=== PATIENT | male | born 1970 | race Caucasian/White ===

== ENCOUNTER 2022-04-23 16:30 | Emergency (ER) | payer OTHER, SELFPAY ==
[2022-04-23 17:06] VITALS: BP 137/77; PULSE 98; RESP 18; TEMP 38.6; O2SAT 95
--- NOTE | 2022-04-23 18:59 | ED.GENADULT ---
HPI - General Adult General Chief complaint: Upper Respiratory Infection Stated complaint: Shortness of Breath,Cough,Congestion History of Present Illness HPI narrative: 52 y/o male. PMHx Non-contributory. Presents to [facility] today with acute complaints of increased nasal congestion, cough, 'yellow' phlegm production, as well as 'cold sores' to his lips. Manifestations present > the past 1wk. No MITCHELL, dizziness, focal weakness. No fevers, neck pain. No chest pain, palpitations, hemoptysis. Mild and intermittent dyspnea. Denies GI upset, N/V/D. Related Data Allergies Allergy/AdvReac Type Severity Reaction Status Date / Time No Known Allergies Allergy Mild Verified 04/23/22 17:21 Review of Systems Review of Systems: All systems reviewed & are unremarkable except as noted in HPI and below Constitutional: Cold sores. HENT: Nasal congestion. RESP: Cough, yellow phlegm. PMFSH Past Medical History Medical History Chicken pox Family History Family History Father Family history of elevated blood lipids Family history of cardiovascular disease Social History Social History Smoking status: Never smoker Alcohol intake: current Exam Narrative: GENERAL: Well-appearing, well-nourished, and in no acute distress. HEAD: Normocephalic, atraumatic. EYES: PERRLA, conjunctivae clear, and EOMI. ENT: Mucous membranes moist. With 2 isolated cold sores located to lower and outer lip. No discharge, no necrotic changes. Positive PND. Pharyngeal erythema, without swelling or exudative changes, Uvula midline. Palate soft. NECK: Supple. No lymphadenopathy CHEST: Upper airway Rhonchi, cleared w/cough. No respiratory distress. HEART: Regular rate and rhythm. SKIN: Warm, dry, intact NEURO:? Alert and oriented x3. PSYCH: Normal mood and affect Course Course Level of Care: Express Care Visit Vital Signs Vital signs: Vital Signs Temperature 38.6 C H 04/23/22 17:06 Pulse Rate 98 04/23/22 17:06 Respiratory Rate 18 04/23/22 17:06 Blood Pressure 137/77 04/23/22 17:06 Pulse Oximetry 95 04/23/22 17:06 Oxygen Delivery Room Air 04/23/22 17:06 Temperature 38.6 C H 04/23/22 17:06 Pulse Rate 98 04/23/22 17:06 Respiratory Rate 18 04/23/22 17:06 Blood Pressure 137/77 04/23/22 17:06 Pulse Oximetry 95 04/23/22 17:06 Oxygen Delivery Room Air 04/23/22 17:06 Medical Decision Making Differential Diagnosis Differential Diagnosis: Differential Diagnosis: Consideration of the following conditions may be warranted for the presenting problem, they are not final diagnoses: upper respiratory infection, otitis media, sinusitis, RSV viral infection, bronchitis, pharyngitis, PNA, Streptococcal sore throat, COVID-19, and other. Vital Signs Vital Signs: Vital Signs Temperature 38.6 C H 04/23/22 17:06 Pulse Rate 98 04/23/22 17:06 Respiratory Rate 18 04/23/22 17:06 Blood Pressure 137/77 04/23/22 17:06 Pulse Oximetry 95 04/23/22 17:06 Oxygen Delivery Room Air 04/23/22 17:06 Temperature 38.6 C H 04/23/22 17:06 Pulse Rate 98 04/23/22 17:06 Respiratory Rate 18 04/23/22 17:06 Blood Pressure 137/77 04/23/22 17:06 Pulse Oximetry 95 04/23/22 17:06 Oxygen Delivery Room Air 04/23/22 17:06 Discharge Plan Discharge Clinical Impression: Upper respiratory infection, Sinusitis Patient Disposition: Home, Self-Care Condition: Stable Instructions: Antibiotic Form, Upper Respiratory Infection (DC) Prescriptions: New azithromycin 250 mg tablet See Rx Instructions .ROUTE .COMPLEX Qty: 6 0RF Rx Instructions: For 250 mg dose pack: take 500 mg today (day 1), then 250 mg for 4 days (days 2-5) methylprednisolone [Medrol (Luis Fernando)] 4 mg tablets,dose pack See Rx Instr
== END 2022-04-23 17:40 | disposition home or self-care (01) ==
PROVIDERS: Emergency Provider Nurse Practitioner Adult Health
DX: J06.9 Acute upper respiratory infection, unspecified (principal); J32.9 Chronic sinusitis, unspecified
CPT/HCPCS: 99213; G0463

== ENCOUNTER 2024-06-25 06:11 | Emergency (ER) | payer OTHER, SELFPAY ==
--- NOTE | ~2024-06-25 | CT_ITS ---
Non-contrast Head CT History: Syncope, seizure Technique: Axial non-contrast imaging of the brain was performed. Dose reduction technique was used on this scan by utilizing automated exposure control and iterative reconstruction technique. The dose -length product (DLP) was 681.00 mGy-cm. Findings: There is no evidence of intracranial hemorrhage, mass lesion, or acute infarct. Brain par enchyma appears normal. The ventricles and subarachnoid spaces are normal in size. The calvarium ap pears normal. The visualized paranasal sinuses and mastoid air cells are clear. Impression: No significant abnormality seen. Reviewed, dictated and finalized at location . K MECHANIC APPRENTICE Impression: No significant abnormality seen.
[2024-06-25 06:12] VITALS: BP 114/72; PULSE 41; RESP 17; O2SAT 95
--- NOTE | 2024-06-25 06:14 | ECG_ITS ---
Test Date: 2024-06-25 06:21:58 Measurements Intervals [place] Rate: 49 P: -9 ID: [id number] QRS: 68 QRSD: 87 T: 52 QT: 483 QTc: 438 Interpretive Statements SINUS BRADYCARDIA WITH SINUS ARRHYTHMIA DELAYED PRECORDIAL R/S TRANSITION BASELINE ARTIFACT- I, II, AVR, AVF BORDERLINE ECG No previous ECG available for comparison Electronically Signed On 06-25-2024 07:38:29 [employer] by Remi Baltazar D.O.
--- NOTE | 2024-06-25 06:30 | ED_ITS ---
HPI - General Adult General Chief complaint: Unspecified <Des Zacarias MD - Last Filed: 06/25/24 19:13> Stated complaint: SYNCOPE VS SEIZURE <Des Zacarias MD - Last Filed: 06/25/24 19:13> Time Seen by Provider: 06/25/24 06:15 <Des Zacarias MD - Last Filed: 06/25/24 19:13> History of Present Illness HPI narrative: 54-year-old otherwise healthy male presenting to the emergency department for evaluation of a potential syncopal versus seizure episode. Patient has otherwise been in his normal state of health but did recently have a upper respiratory infection with influenza. He states that while getting up and using the shower today he felt like he was getting lightheaded and had a syncopal event with loss of consciousness for about 20 seconds, found him and had shaking activity in his extremities which she was concerned about having a seizure. This occurred a 2nd time before patient woke up acting appropriately and had normal mental status. He does not recall this shaking or seizure activity but did remember going to the bathroom to try and shower. Patient has a history of chronic bradycardia with heart rates in the low 40s but has never seen a wallpaper consultant for this. Does not take any cardiac medications, does not take any prescription medications in fact. EMS arrived and patient was awake alert oriented at baseline, had a normal blood sugar, no evidence of trauma. Patient self is asymptomatic at this time and denies any headache, vision changes, nausea, vomiting, abdominal pain, back pain, fever, chills. No history of seizure disorder. No history of cardiac events in the past. States he has had episodes of syncope in the remote past that were triggered by other causes such as vertigo. <Des Zacarias MD - Last Filed: 06/25/24 19:13> Related Data Home medications: Home Medications ?Medication ?Instructions ?Recorded ?Confirmed ?Last Taken ?Type ascorbic acid (vitamin C) PO 11/13/23 11/13/23 Unknown History <Des Zacarias MD - Last Filed: 06/25/24 19:13> Allergies/adverse reactions: Allergies Allergy/AdvReac Type Severity Reaction Status Date / Time No Known Allergies Allergy Mild Verified 06/25/24 06:24 <Des Zacarias MD - Last Filed: 06/25/24 19:13> Review of Systems 2 Review of Systems: As reviewed above in HPI <Des Zacarias MD - Last Filed: 06/25/24 19:13> PMFSH Past Medical History Medical History: Medical History Snoring Cerumen impaction Encounter to establish care Hx of fracture of skull Chicken pox <Des Zacarias MD - Last Filed: 06/25/24 19:13> Family History Family History: Family History Father Family history of elevated blood lipids Family history of cardiovascular disease Mother Bladder cancer <Des Zacarias MD - Last Filed: 06/25/24 19:13> Social History Social History: Social History Smoking status: Never smoker Alcohol intake: current <Des Zacarias MD - Last Filed: 06/25/24 19:13> Exam 2 Narrative: GENERAL: [Well-appearing, well-nourished, and in no acute distress.] HEAD: [Normocephalic, atraumatic.] EYES: [PERRLA and EOMI.] ENT: Nares clear, no rhinorrhea or epistaxis. Mucous membranes moist. NECK: Supple. CHEST: [Clear to auscultation. No respiratory distress.] HEART: Bradycardic rate but regular rhythm. No murmur heard. [Normal peripheral pulses.] ABDOMEN: [Soft, nondistended], [nontender], [No rigidity or guarding] EXTREMITIES: Normal range of motion. [No edema.] SKIN: Warm, dry, no rash. NEURO: [No focal deficits]. Alert and oriented [x3.] PSYCH: [Normal mood and affect.] <Des Zacarias MD - Last Filed: 06/25/24 19:13> Course Course Emergency Course: Patient signed out to me pending remainder workup. My re-evaluation, patient is no distress. He does state that when knee pain to this time, he had stood up suddenly, started feeling like he was going to pass out the patient rate, he tried to back down was only able to get foot before he fell, his saw some seizure-like activity that did not last long and patient tried to get back up without any postictal phase. He denies any chest pain or shortness of breath. This does seem consistent with syncope, patient states he would rather go home at this time if possible and I feel this is reasonable as he is currently asymptomatic, Holter monitor placed and f/u to cardiology provided. Pt and agreeable to plan. Very well-appearing time of discharge, strict return precautions discussed <Shalini Hurley MD - Last Filed: 06/25/24 14:10> Vital Signs Vital signs: Vital Signs Pulse Rate 41 L 06/25/24 06:12 Respiratory Rate 17 06/25/24 06:12 Blood Pressure 114/72 06/25/24 06:12 Pulse Oximetry 95 06/25/24 06:12 Oxygen Delivery Room Air 06/25/24 06:12 Pulse Rate 44 L 06/25/24 09:24 Respiratory Rate 18 06/25/24 09:24 Blood Pressure 117/80 06/25/24 09:24 Pulse Oximetry 97 06/25/24 09:24 Oxygen Delivery Room Air 06/25/24 06:12 <Des Zacarias MD - Last Filed: 06/25/24 19:13> Vital Signs Pulse Rate 41 L 06/25/24 06:12 Respiratory Rate 17 06/25/24 06:12 Blood Pressure 114/72 06/25/24 06:12 Pulse Oximetry 95 06/25/24 06:12 Oxygen Delivery Room Air 06/25/24 06:12 Pulse Rate 44 L 06/25/24 09:24 Respiratory Rate 18 06/25/24 09:24 Blood Pressure 117/80 06/25/24 09:24 Pulse Oximetry 97 06/25/24 09:24 Oxygen Delivery Room Air 06/25/24 06:12 <Shalini Hurley MD - Last Filed: 06/25/24 14:10> Medical Decision Making MDM Narrative Medical decision making narrative: 54-year-old male presenting to the ER for evaluation of a potential syncopal event versus a seizure event. No history of seizure disorder, no history of epilepsy. Does not take any cardiac medications. Was otherwise in his normal state of health but did recently get over the flu several days ago. Patient had an episode of shaking for approximately 20 seconds according to the associated with loss of consciousness but patient states that he does not remember this. He states he went up and use the restroom and tried to get into the shower and then fainted. Woke up acting appropriately without any postictal phase. No evidence of trauma. He is chronically bradycardic but no other vital concerns on his vitals. Patient is currently asymptomatic and otherwise feels well. Broad workup was ordered including electrolyte panel, CBC, troponin, head CT, chest x-ray and EKG. Suspicion presently for potential syncopal event either related to his heart rate versus orthostasis or dehydration given that he recently got over the influenza virus. Suspicion for new onset epilepsy is very low however will evaluate with labs and imaging. Patient is placed on allied health teacher and pulse oximetry and observed here in the emergency department. Patient's workup is pending. [facility] physician Dr. Hurley at 7:00 a.m. <Des Zacarias MD - Last Filed: 06/25/24 19:13> Medical Records Medical records reviewed: Yes I reviewed the external patient's medical records. <Des Zacarias MD - Last Filed: 06/25/24 19:13> Vital Signs Vital Signs: Vital Signs Pulse Rate 41 L 06/25/24 06:12 Respiratory Rate 17 06/25/24 06:12 Blood Pressure 114/72 06/25/24 06:12 Pulse Oximetry 95 06/25/24 06:12 Oxygen Delivery Room Air 06/25/24 06:12 Pulse Rate 44 L 06/25/24 09:24 Respiratory Rate 18 06/25/24 09:24 Blood Pressure 117/80 06/25/24 09:24 Pulse Oximetry 97 06/25/24 09:24 Oxygen Delivery Room Air 06/25/24 06:12 <Des Zacarias MD - Last Filed: 06/25/24 19:13> Vital Signs Pulse Rate 41 L 06/25/24 06:12 Respiratory Rate 17 06/25/24 06:12 Blood Pressure 114/72 06/25/24 06:12 Pulse Oximetry 95 06/25/24 06:12 Oxygen Delivery Room Air 06/25/24 06:12 Pulse Rate 44 L 06/25/24 09:24 Respiratory Rate 18 06/25/24 09:24 Blood Pressure 117/80 06/25/24 09:24 Pulse Oximetry 97 06/25/24 09:24 Oxygen Delivery Room Air 06/25/24 06:12 <Shalini Hurley MD - Last Filed: 06/25/24 14:10> Lab Data Result diagrams: 06/25/24 06:33 06/25/24 06:33 <Des Zacarias MD - Last Filed: 06/25/24 19:13> Labs: Lab Results 06/25/24 06/25/24 06/25/24 Range/Units 06:33 06:59 07:08 WBC 3.5 L (4.5-10.0) K/mm3 RBC 4.10 L (4.6-6.20) M/mm3 Hgb 12.9 L (14.0-18.0) g/dL Hct 39.7 L (42.0-52.0) % MCV 96.8 (80-100) fl MCH 31.5 (26-34) pg MCHC 32.5 (32-36) g/dl RDW 12.9 (11.5-14.5) % Plt Count 181 (150-375) k/mm3 MPV 10.1 (7.4-10.4) fl Immature Gran % (Auto) 0.3 (0-0.5) % Neut % (Auto) 38.5 L (45.5-73.1) % Lymph % (Auto) 38.6 (18.3-44.2) % [place] % (Auto) 19.1 H (2.6-8.5) % Eos % (Auto) 2.6 (0-4.4) % Baso % (Auto) 0.9 (0.2-1.2) % Lymph # (Auto) 1.35 (0.9-3.2) K/mm3 [place] # (Auto) 0.7 H (0.1-0.6) K/mm3 Eos # (Auto) 0.1 (0-0.3) K/mm3 Baso # (Auto) 0.0 (0.0-0.1) K/mm3 Abs Immat Gran (auto) 0.01 (0.00-0.031) K/mm3 Absolute Neuts (auto) 1.4 (1.3-6.7) K/mm3 Absolute Nucleated RBC 0.000 (0.0-0.012) K/mm3 Nucleated RBC % 0.0 (0.0-0.2) % Atypical Lymphocytes Present Platelet Estimate Adequate (Adequate) % Immature Plt Fraction 5.2 (0.9-11.2) % Schistocytes None seen PT 13.4 (11.1-14.7) Seconds INR 1.0 APTT 24.8 (22.3-36.8) Seconds Sodium 138 (137-145) mmol/L Potassium 4.3 (3.4-5.0) mmol/L Chloride 103 (98-107) mmol/L Carbon Dioxide 28 (22-30) mmol/L Anion Gap 7 (4-12) mmol/L BUN 18 (9-20) mg/dL Creatinine 1.27 (0.7-1.3) mg/dL Estim Creat Clear Calc 66 ml/min Estimated GFR 59 (59 - ) Glucose 96 (65-110) mg/dL Lactic Acid 1.1 (0.7-2.0) mmol/L Calcium 8.7 (8.4-10.2) mg/dL Total Bilirubin 0.4 (0.2-1.3) mg/dL AST 28 (17-59) U/L ALT 17 (6-50) U/L Alkaline Phosphatase 49 (38-126) U/L Troponin I < 0.012 (0.000-0.034) ng/mL Total Protein 7.0 (6.3-8.2) g/dL Albumin 3.8 (3.5-5.1) g/dL Urine Color Dark yellow (Yellow) Urine Appearance Clear (Clear) Urine pH 5.5 (5.0-9.0) Ur Specific [place] 1.025 (1.001-1.035) Urine Protein Trace (Negative) mg/dL Urine Glucose (UA) Negative (Negative) mg/dL Urine Ketones Trace H (Negative) mg/dL Ur Blood (Man) Negative (Negative) Urine Nitrate Negative (Negative) Urine Bilirubin Negative (Negative) Urine Urobilinogen 1.0 (<2.0) mg/dL Add Ur Microanalysis Reviewed Leukocyte Esterase Rfl Negative (Negative) EFREN/UL Urine RBC 0-2 (0-2) /hpf Urine WBC 0-5 (0-3) /hpf Ur Squamous Epith Cells Occasional (Few) /hpf Urine Bacteria None seen /hpf Urine Casts 6-10 Hyaline Casts Present (None) /lpf Urine Mucus Present /lpf <Des Zacarias MD - Last Filed: 06/25/24 19:13> Lab Results 06/25/24 06/25/24 06/25/24 Range/Units 06:33 06:59 07:08 WBC 3.5 L (4.5-10.0) K/mm3 RBC 4.10 L (4.6-6.20) M/mm3 Hgb 12.9 L (14.0-18.0) g/dL Hct 39.7 L (42.0-52.0) % MCV 96.8 (80-100) fl MCH 31.5 (26-34) pg MCHC 32.5 (32-36) g/dl RDW 12.9 (11.5-14.5) % Plt Count 181 (150-375) k/mm3 MPV 10.1 (7.4-10.4) fl Immature Gran % (Auto) 0.3 (0-0.5) % Neut % (Auto) 38.5 L (45.5-73.1) % Lymph % (Auto) 38.6 (18.3-44.2) % [place] % (Auto) 19.1 H (2.6-8.5) % Eos % (Auto) 2.6 (0-4.4) % Baso % (Auto) 0.9 (0.2-1.2) % Lymph # (Auto) 1.35 (0.9-3.2) K/mm3 [place] # (Auto) 0.7 H (0.1-0.6) K/mm3 Eos # (Auto) 0.1 (0-0.3) K/mm3 Baso # (Auto) 0.0 (0.0-0.1) K/mm3 Abs Immat Gran (auto) 0.01 (0.00-0.031) K/mm3 Absolute Neuts (auto) 1.4 (1.3-6.7) K/mm3 Absolute Nucleated RBC 0.000 (0.0-0.012) K/mm3 Nucleated RBC % 0.0 (0.0-0.2) % Atypical Lymphocytes Present Platelet Estimate Adequate (Adequate) % Immature Plt Fraction 5.2 (0.9-11.2) % Schistocytes None seen PT 13.4 (11.1-14.7) Seconds INR 1.0 APTT 24.8 (22.3-36.8) Seconds Sodium 138 (137-145) mmol/L Potassium 4.3 (3.4-5.0) mmol/L Chloride 103 (98-107) mmol/L Carbon Dioxide 28 (22-30) mmol/L Anion Gap 7 (4-12) mmol/L BUN 18 (9-20) mg/dL Creatinine 1.27 (0.7-1.3) mg/dL Estim Creat Clear Calc 66 ml/min Estimated GFR 59 (59 - ) Glucose 96 (65-110) mg/dL Lactic Acid 1.1 (0.7-2.0) mmol/L Calcium 8.7 (8.4-10.2) mg/dL Total Bilirubin 0.4 (0.2-1.3) mg/dL AST 28 (17-59) U/L ALT 17 (6-50) U/L Alkaline Phosphatase 49 (38-126) U/L Troponin I < 0.012 (0.000-0.034) ng/mL Total Protein 7.0 (6.3-8.2) g/dL Albumin 3.8 (3.5-5.1) g/dL Urine Color Dark yellow (Yellow) Urine Appearance Clear (Clear) Urine pH 5.5 (5.0-9.0) Ur Specific [place] 1.025 (1.001-1.035) Urine Protein Trace (Negative) mg/dL Urine Glucose (UA) Negative (Negative) mg/dL Urine Ketones Trace H (Negative) mg/dL Ur Blood (Man) Negative (Negative) Urine Nitrate Negative (Negative) Urine Bilirubin Negative (Negative) Urine Urobilinogen 1.0 (<2.0) mg/dL Add Ur Microanalysis Reviewed Leukocyte Esterase Rfl Negative (Negative) EFREN/UL Urine RBC 0-2 (0-2) /hpf Urine WBC 0-5 (0-3) /hpf Ur Squamous Epith Cells Occasional (Few) /hpf Urine Bacteria None seen /hpf Urine Casts 6-10 Hyaline Casts Present (None) /lpf Urine Mucus Present /lpf <Shalini Hurley MD - Last Filed: 06/25/24 14:10> Discharge Plan Discharge Clinical Impression: Syncope, Asymptomatic bradycardia <Des Zacarias MD - Last Filed: 06/25/24 19:13> Patient Disposition: Home, Self-Care <Des Zacarias MD - Last Filed: 06/25/24 19:13> Condition: Stable <Des Zacarias MD - Last Filed: 06/25/24 19:13> Instructions: Syncope (ED) <Des Zacarias MD - Last Filed: 06/25/24 19:13> Additional Instructions: Please make sure that you are keeping adequately hydrated, take your time standing up, and if this happens again, please come back to the emergency room. Please follow up with the wallpaper consultant. <Des Zacarias MD - Last Filed: 06/25/24 19:13> Patient Language: Croatian <Des Zacarias MD - Last Filed: 06/25/24 19:13> Prescriptions: No Action ascorbic acid (vitamin C) PO <Des Zacarias MD - Last Filed: 06/25/24 19:13> Other Ambulatory Orders: CA holter monitor 3-7 day (Routine) Timeframe: 1 Day Location: Determined by Patient Ordered By: Remi Baltazar <Des Zacarias MD - Last Filed: 06/25/24 19:13> Follow-up/Referrals: Remi Baltazar DO [Physician] - 2 Days PHYSICIAN,PATIENT REGISTRATION SPECIALIST [Primary Care Provider] - <Des Zacarias MD - Last Filed: 06/25/24 19:13>
[2024-06-25] MEDS: LACTATED RINGERS 1,000 ML 999 ML IV CONT (06:35)
[2024-06-25 06:47] LABS: Basophils Percent Auto 0.9 % (0.2-1.2); Eosinophils Absolute Auto 0.1 K/mm3 (0-0.3); Eosinophils Percent Auto 2.6 % (0-4.4); Hematocrit 39.7 % (42.0-52.0); Hemoglobin 12.9 g/dL (14.0-18.0); Immature Granulocyte Absolute 0.01 K/mm3 (0.00-0.031); Immature Granulocyte Percent A 0.3 % (0-0.5); Immature Platelet Fraction Pct 5.2 % (0.9-11.2); Lymphocytes Absolute Auto 1.35 K/mm3 (0.9-3.2); Lymphocytes Percent Auto 38.6 % (18.3-44.2); Mean Corpuscular HGB Conc 32.5 g/dl (32-36); Mean Corpuscular Hemoglobin 31.5 pg (26-34); Mean Corpuscular Volume 96.8 fl (80-100); Mean Platelet Volume 10.1 fl (7.4-10.4); Monocytes Absolute Auto 0.7 K/mm3 (0.1-0.6); Monocytes Percent Auto 19.1 % (2.6-8.5); Neutrophils Absolute Auto 1.4 K/mm3 (1.3-6.7); Neutrophils Percent Auto 38.5 % (45.5-73.1); Platelet Count Result 181 k/mm3 (150-375); Red Cell Distribution Width 12.9 % (11.5-14.5); White Blood Count 3.5 K/mm3 (4.5-10.0)
[2024-06-25 06:57] LABS: Alanine Aminotransferase 17 U/L (6-50); Albumin Level 3.8 g/dL (3.5-5.1); Alkaline Phosphatase 49 U/L (38-126); Anion Gap 7 mmol/L (4-12); Aspartate Amino Transferase 28 U/L (17-59); Bilirubin,Total 0.4 mg/dL (0.2-1.3); Blood Urea Nitrogen 18 mg/dL (9-20); Calcium 8.7 mg/dL (8.4-10.2); Carbon Dioxide 28 mmol/L (22-30); Chloride 103 mmol/L (98-107); Estimated CRCL calculation 66 ml/min; Estimated Glomerular Filt Rate 59; Glucose 96 mg/dL (65-110); Potassium 4.3 mmol/L (3.4-5.0); Sodium 138 mmol/L (137-145)
[2024-06-25 06:59] LABS: Prothrombin Time 13.4 Seconds (11.1-14.7)
[2024-06-25 07:00] LABS: Partial Thromboplastin Time 24.8 Seconds (22.3-36.8)
[2024-06-25 07:03] LABS: Atypical Lymphocytes Present; Platelet Estimate Adequate (Adequate); Schistocytes None Seen
[2024-06-25 07:08] LABS: Troponin I < 0.012 ng/mL (0.000-0.034)
[2024-06-25 07:15] LABS: Lactic Acid Reflex 1.1 mmol/L (0.7-2.0)
[2024-06-25 07:24] VITALS: BP 109/72; PULSE 39; RESP 16; O2SAT 100
[2024-06-25 07:37] LABS: Add Urine Microscopic? YES; Appearance Urine Clear (Clear); Bacteria Urine None Seen /hpf; Bilirubin Urine Negative (Negative); Blood Urine Negative (Negative); Color Urine Dark Yellow (Yellow); Glucose Urine UA Negative (Negative); Hyaline Casts Urine Present /lpf; Ketones Urine Trace mg/dL (Negative); Leukocyte Esterase Ur Negative LEU/UL (Negative); Mucus Urine Present /lpf; Need Manual Microscopic Reviewed; Nitrate Urine Negative (Negative); Protein Urine Trace mg/dL (Negative); RBC Urine 0-2 /hpf (0-2); Specific Grav Ur 1.025 (1.001-1.035); Squamous Epithelial Cell Urine Occasional /hpf (Few); WBC Urine 0-5 /hpf (0-3); pH Urine 5.5 (5.0-9.0)
[2024-06-25 09:24] VITALS: BP 117/80; PULSE 44; RESP 18; O2SAT 97
== END 2024-06-25 09:39 | disposition home or self-care (01) ==
PROVIDERS: Student in an Organized Health Care Education/Training Program; Emergency Provider Emergency Medicine
DX: R55 Syncope and collapse (principal); R00.1 Bradycardia, unspecified
CPT/HCPCS: 36415; 70450; 80053; 81001; 83605; 84484; 85025; 85055; 85610; 85730; 93005; 93242; 96360; 99284; J7120

== ENCOUNTER → 2024-06-30 14:47 | Outpatient (CLI) | payer OTHER, SELFPAY ==
--- NOTE | ~2024-06-30 | XR_ITS ---
EXAMINATION: XR chest 2V 07/03/2024 12:29 INDICATION: Cough PROCEDURE: 2 view chest COMPARISON: 08/03/2005 FINDINGS: The lungs are clear. The cardiomediastinal silhouette is within normal limits. There are no pleural effusions. There is no pneumothorax suspected. IMPRESSION: 1: NO ACUTE CARDIOPULMONARY DISEASE. Reviewed, dictated and finalized at location L. ER MILL WORKER
== END ==
LOC: EXPTRAD 14:48
PROVIDERS: PCP Nurse Practitioner Family; Visit Provider Nurse Practitioner Family
DX: R05.9 Cough, unspecified (principal)
CPT/HCPCS: 71046

== ENCOUNTER 2024-07-06 16:04 | Emergency (ER) | payer OTHER, SELFPAY ==
[2024-07-06 16:37] VITALS: BP 141/75; PULSE 85; RESP 18; TEMP 38.4; O2SAT 95
--- NOTE | 2024-07-06 16:59 | ED_ITS ---
HPI - URI/Sore Throat General Chief Complaint: Upper Respiratory Infection Stated Complaint: Upper Respiratory Infection Time Seen by Provider: 07/06/24 16:59 Source: patient, RN notes reviewed and old records reviewed Mode of arrival: ambulatory Limitations: no limitations History of Present Illness HPI Narrative: 54-year-old male presents to the [facility] with intermittent fevers, nonproductive cough. States that started about 2 weeks ago. Was seen in the ER on the 25 of June for syncopal episode. Did follow-up with primary care provider to at ordered a chest x-ray that was done on the which showed no acute findings at this time. Patient reports increasing fatigue, coughing. Denies any chest pain. Patient also reports he has had cold sores he has been taking acyclovir for and they are not clearing up. Onset (ago): week(s) (2) Related Data Home Medications ?Medication ?Instructions ?Recorded ?Confirmed ?Last Taken ?Type multivitamin 1 tablet PO DAILY 07/06/24 07/06/24 Unknown History Allergies Allergy/AdvReac Type Severity Reaction Status Date / Time No Known Allergies Allergy Mild Verified 07/06/24 16:41 Review of Systems Review of Systems: All systems reviewed & are unremarkable except as noted in HPI and below Constitutional: Constitutional: Reports as per HPI, Reports body ache(s), Reports fatigue and Reports fever(s) ENT: Reports as per HPI Cardiovascular: Cardiovascular: Reports no additional cardiovascular complaints, Denies chest pain and Denies dyspnea Respiratory: Respiratory: Reports as per HPI, Denies chest congestion, Reports cough and Denies dyspnea Musculoskeletal: Musculoskeletal: Reports no additional musculoskeletal complaints Integumentary/Breasts: Skin/Breast: Reports system reviewed and no additional complaints, except as docu PMFSH Past Medical History Medical History Cough Snoring Cerumen impaction Encounter to establish care Hx of fracture of skull Chicken pox Family History Family History Father Family history of elevated blood lipids Family history of cardiovascular disease Mother Bladder cancer Social History Social History Smoking status: Never smoker Alcohol intake: current Comments At the time of my signature, I reviewed and agree with the nursing past medical, surgical, social, and family history. There is no relevant family history pertinent to the patient complaint. Exam Const: General: cooperative, healthy appearing, no acute distress, well developed, alert, tired appearing, uncomfortable and well nourished Nutritional Appearance: well nourished Orientation/consciousness: patient oriented x3 Limitations: no limitations HENMT: Head: normal to inspection Ears: hearing grossly normal bilaterally, external ears normal, TM's normal bilaterally, EAC's normal, mastoids normal and no periauricular adenopathy Other: Cold sores bottom lip Eyes: General: appearance normal, both eyes and all related structures Alignment and Position: alignment normal Neck: Neck: normal visual inspection, full ROM, no lymphadenopathy and no meningeal signs Chest: Chest palpation & inspection: normal inspection of the chest Resp: Effort & Inspection: normal respiratory effort and able to speak in complete sentences Auscultation: no crackles, no rales, no rhonchi and wheezes expiratory wheezes and throughout Cardio: Rate: regular rate Skin: General skin exam: normal color and no rashes or lesions noted Neuro: General: patient oriented x3, gait normal, moves all extremities and no meningeal signs Cognition (Neuro): normal cognition Speech: normal speech Gait exam (Neuro): Normal gait present Extrem: General: normal to inspection, full ROM, capillary refill normal and normal gait Psych: Appearance: grossly normal and well kempt Mental Status: mental status grossly normal Speech and movement: Normal speech and movement present and Clear speech present Affect: normal affect Attitude: cooperative Course Course Level of Care: Express Care Visit Vital Signs Vital signs: Vital Signs Temperature 101.1 F H 07/06/24 16:37 Pulse Rate 85 07/06/24 16:37 Respiratory Rate 18 07/06/24 16:37 Blood Pressure 141/75 H 07/06/24 16:37 Pulse Oximetry 95 07/06/24 16:37 Oxygen Delivery Room Air 07/06/24 16:37 Temperature 101.1 F H 07/06/24 16:37 Pulse Rate 85 07/06/24 16:37 Respiratory Rate 18 07/06/24 16:37 Blood Pressure 141/75 H 07/06/24 16:37 Pulse Oximetry 95 07/06/24 16:37 Oxygen Delivery Room Air 07/06/24 16:37 Reviewed MDM - URI/Sore Throat MDM Narrative Medical decision making narrative: Patient sitting in exam room. Nontoxic. Patient is febrile, saturations 95%. Slight wheezing noted throughout, expiratory. Patient did have a chest x-ray 1 week ago. Flu and COVID are negative in clinic. Concerns for atypical pneumonia, will cover with doxycycline and encourage patient to follow-up with primary care provider. Discussed with patient if symptoms are not improving he should proceed to the emergency room for further evaluation, testing and treatment Discharge instructions reviewed with patient, as well as provided in writing per nursing staff. The instructions also include specific and strict return/GO TO THE ER as well as f/u information. All questions have been answered, and the patient deny any further questions with discharge and discharge plan. Some parts of this dictation were generated by voice recognition software and may contain typographical and/or grammatical inaccuracies. Differential Diagnosis Differential diagnosis: Likely upper respiratory infection, sinusitis, viral infection, bronchitis, influenza, pharyngitis and other (Pneumonia) Lab Data Labs: Lab Results 07/06/24 Range/Units 17:26 POC Influenza A Ag Negative (Negative) POC Influenza B Ag Negative (Negative) POC SARS CoV-2 Ag Negative (Negative) Reviewed Critical Care Time Critical Care Time Critical Care Time: No Discharge Plan Discharge Clinical Impression: Bronchitis Patient Disposition: Home, Self-Care Condition: Stable Instructions: Antibiotic Form, Acute Bronchitis (ED) Additional Instructions: Take medications as prescribed You can alternate Motrin and Tylenol as needed for pain fever Follow-up with primary care provider within 3-5 days For new or worsening symptoms go directly to the emergency room Patient Language: [place] Prescriptions: New doxycycline monohydrate 100 mg tablet 100 mg PO BID Qty: 14 0RF albuterol sulfate 90 mcg/actuation HFA aerosol inhaler 2 puff inhalation QID PRN (Reason: shortness of breath or wheezing) Qty: 6.7 0RF (DME) Aerochamber MV Spacer See Rx Instructions .Route Qty: 1 0RF Rx Instructions: As directed No Action multivitamin Tablet 1 tablet PO DAILY Follow-up/Referrals: Rene Fernandes MD [Primary Care Provider] - 3 Days (express care follow up) Stand Alone Forms: Work/School Release IP Time of Disposition: 17:20
[2024-07-06 17:27] LABS: EDCOVIDSCREEN Negative (Negative); EDINFLUASCREEN Negative (Negative); EDINFLUBSCREEN Negative (Negative)
== END 2024-07-06 17:25 | disposition home or self-care (01) ==
PROVIDERS: Emergency Provider Nurse Practitioner; PCP Family Medicine
DX: J40 Bronchitis, not specified as acute or chronic (principal); Z20.822 Contact with and (suspected) exposure to COVID-19
CPT/HCPCS: 87426; 87804; 99213; G0463